=== PATIENT | female | born 2000 | race Caucasian/White ===

== ENCOUNTER 2018-02-09 13:44 | Emergency (ER) | payer MEDICAID, OTHER ==
[~2018-02-09] VITALS: Ht 154.9 cm; Wt 44.5 kg
[~2018-02-09 13:44] MED LIST: DIMETAPP; MOTRIN
[2018-02-09 14:17] VITALS: BP 103/74
--- NOTE | 2018-02-09 14:43 | NUR ---
17/F BIB FATHER C/O BOTH FLANK PAIN & PRESSURE TYPE HEADACHE X 1 WEEK. EPISTAXIS YESTERDAY. THORNTON WORSE TODAY . DENIES INJURY. DENIES N/V/D; SKIN IS PINK/WARM/DRY; AAOX4 WITH EVEN AND STEADY GAIT; LUNGS CLEAR BL; PT DENIES ANY FEVER, CP, SOB, OR COUGH AT THIS TIME; PATIENT STATES PAIN OF 10/10 AT THIS TIME; PATIENT POSITIONED FOR COMFORT; HOB ELEVATED; BEDRAILS UP X2; BED DOWN. ER MD MADE AWARE OF PT STATUS.
[2018-02-09] MEDS ORDERED: IBUPROFEN 600 MG TAB PO ONE (15:45)
[2018-02-09 17:24] VITALS: BP 116/57
--- NOTE | 2018-02-09 17:25 | NUR ---
Patient discharged with v/s stable. Written and verbal after care instructions given and explained. Patient alert, oriented and verbalized understanding of instructions. Ambulatory with steady gait. All questions addressed prior to discharge. ID band removed. Patient advised to follow up with PMD. Rx of FIORICET given. Patient educated on indication of medication including possible reaction and side effects. Opportunity to ask questions provided and answered.
== END 2018-02-09 17:25 | disposition home or self-care (01) ==
LOC: MED 13:44
DX: G44.209 Tension-type headache, unspecified, not intractable (principal)
CPT/HCPCS: 70450; 81025; 99283; 99285